=== PATIENT | male | born 1955 | race Hispanic/Latino ===

== ENCOUNTER → 2019-01-30 | Outpatient (CLI) | payer OTHER ==
[2019-01-30 10:47] LABS: CREATININE 0.9 mg/dL (0.5-1.5); POTASSIUM 4.5 mmol/L (3.5-5.1)
== END | disposition home or self-care (01) ==
LOC: LAB 09:50
PROVIDERS: ATTEND Family Medicine
DX: C09.1 Malignant neoplasm of tonsillar pillar (anterior) (posterior) (principal); C71.9 Malignant neoplasm of brain, unspecified
CPT/HCPCS: 36415; 80048

== ENCOUNTER → 2019-01-31 | Outpatient (CLI) | payer OTHER ==
[~2019-01-31] MED LIST: GADODIAMIDE 10 MMOL/20 ML VIAL IV ONE
== END | disposition home or self-care (01) ==
LOC: RAH 09:54
PROVIDERS: ATTEND Family Medicine
DX: G31.89 Other specified degenerative diseases of nervous system (principal); G93.89 Other specified disorders of brain; Z85.818 Personal history of malignant neoplasm of other sites of lip, oral cavity, and pharynx
CPT/HCPCS: 70553; A9579

== ENCOUNTER 2022-08-09 13:46 | Emergency (ER) | payer OTHER ==
[~2022-08-09] VITALS: Ht 165.1 cm; Wt 65.8 kg
[2022-08-09 15:19] LABS: BASOPHILS % (AUTO) 0.3 % (0.0-5.0); EOSINOPHILS % (AUTO) 0.1 % (0.0-8.0); HEMATOCRIT 40.6 % (42-54); LYMPHOCYTES % (AUTO) 4.8 % (21.0-51.0); MEAN CORPUSCULAR HEMOGLOBIN 32.8 pg (27.0-33.0); MEAN CORPUSCULAR VOLUME 96.4 fL (79-99); MONOCYTES % (AUTO) 5.9 % (3.0-13.0); NEUTROPHILS % (AUTO) 88.6 % (40.0-77.0); PLATELET COUNT (AUTO) 149 K/uL (130-400); RED BLOOD CELL COUNT(AUTO) 4.21 MIL/uL (4.50-6.20); RED CELL DISTRIBUTION WIDTH 11.9 % (11.0-15.5); WHITE BLOOD COUNT (AUTO) 7.2 K/uL (4.8-10.8)
[2022-08-09 15:28] LABS: CREATININE 1.1 mg/dL (0.5-1.5); POTASSIUM 3.5 mmol/L (3.5-5.1)
[2022-08-09 15:35] LABS: ALBUMIN 4.1 g/dL (3.5-5.0); TOTAL PROTEIN, SERUM 7.8 g/dL (6.0-8.3)
[2022-08-09 15:54] LABS: APPEARANCE,URINE CLEAR (CLEAR); BILIRUBIN,URINE NEGATIVE (NEGATIVE); COLOR,URINE COLORLESS (YELLOW); GLUCOSE, URINE (UA) 70 mg/dL (NEGATIVE); KETONES,URINE 10 mg/dL (NEGATIVE); LEUKOCYTE ESTERASE ,URINE NEGATIVE Leu/uL (NEGATIVE); NITRATE,URINE NEGATIVE (NEGATIVE); OCCULT BLOOD,URINE NEGATIVE (NEGATIVE); PROTEIN,URINE NEGATIVE (NEGATIVE); UROBILINOGEN,URINE 0.2 mg/dL (0.2-1.0)
[2022-08-09 15:56] LABS: RBC,URINE 0-1 /HPF (0-1)
[2022-08-09] MEDS ORDERED: 0.9% NACL 500ML IV.SOLN 500 ML IV ONE (16:30)
[2022-08-09] MEDS ORDERED: FAMOTIDINE 20MG VIAL IV ONE (16:30)
[2022-08-09] MEDS ORDERED: ONDANSETRON 4MG INJ IVP ONE (16:30)
[2022-08-09 18:49] VITALS: BP 143/69
[2022-08-09] MEDS ORDERED: ONDA4TAB10 PO (19:17)
== END 2022-08-09 19:34 | disposition home or self-care (01) ==
LOC: EDH 13:46
DX: E86.0 Dehydration (principal); R11.10 Vomiting, unspecified; A05.9 Bacterial foodborne intoxication, unspecified; Z20.822 Contact with and (suspected) exposure to COVID-19; E78.00 Pure hypercholesterolemia, unspecified; I10 Essential (primary) hypertension
CPT/HCPCS: 99284; 96374; 87635; 96375; 83735; 84484; 80053; 85025; 87804 ×2; 81001; 36415; 93005; C9803; J7040; J3490; J2405; 96361

== ENCOUNTER 2022-08-25 22:06 | Observation (INO) | payer OTHER ==
[~2022-08-25] VITALS: Ht 177.8 cm; Wt 77.1 kg
[~2022-08-25 22:06] MED LIST changes: -GADODIAMIDE 10 MMOL/20 ML VIAL IV ONE; +ONDA4TAB10 PO
[2022-08-25] MEDS ORDERED: 0.9%NACL 1000ML 1,000 ML IV ONE (22:30)
[2022-08-25] MEDS ORDERED: ONDANSETRON 4MG INJ IVP ONE (22:30)
[2022-08-25 22:33] LABS: BASOPHILS % (AUTO) 0.3 % (0.0-5.0); EOSINOPHILS % (AUTO) 0.7 % (0.0-8.0); HEMATOCRIT 35.3 % (42-54); LYMPHOCYTES % (AUTO) 12.5 % (21.0-51.0); MEAN CORPUSCULAR HEMOGLOBIN 32.3 pg (27.0-33.0); MEAN CORPUSCULAR HGB CONC 34.6 g/dL (32.0-36.0); MEAN CORPUSCULAR VOLUME 93.4 fL (79-99); MONOCYTES % (AUTO) 7.1 % (3.0-13.0); NEUTROPHILS % (AUTO) 79.1 % (40.0-77.0); PLATELET COUNT (AUTO) 214 K/uL (130-400); RED BLOOD CELL COUNT(AUTO) 3.78 MIL/uL (4.50-6.20); RED CELL DISTRIBUTION WIDTH 11.7 % (11.0-15.5); WHITE BLOOD COUNT (AUTO) 5.7 K/uL (4.8-10.8)
[2022-08-25 22:50] LABS: ALBUMIN 3.3 g/dL (3.5-5.0); POTASSIUM 4.1 mmol/L (3.5-5.1); TOTAL PROTEIN, SERUM 7.2 g/dL (6.0-8.3)
[2022-08-26] MEDS ORDERED: ONDANSETRON 4MG INJ IVP ONE (00:30)
[2022-08-26] MEDS ORDERED: IOHEXOL-350 50ML VIAL IV ONE (00:59)
[2022-08-26] MEDS ORDERED: LABETALOL 20MG SYG IV ONE (04:16)
[2022-08-26] MEDS ORDERED: LACTULOSE 20 GM/30 ML UDCUP PO PRN (04:30)
[2022-08-26] MEDS ORDERED: LABETALOL 20MG VIAL IV ONE (04:30)
[2022-08-26] MEDS ORDERED: ONDANSETRON 4MG INJ IV PRN (04:30)
[2022-08-26] MEDS ORDERED: 0.9%NACL 1000ML 1,000 ML IV SCH (04:30)
[2022-08-26] MEDS ORDERED: LABETALOL 20MG VIAL IV PRN (04:30)
[2022-08-26] MEDS ORDERED: ACETAMINOPHEN 325 MG TAB PO PRN ×2 (04:30)
[2022-08-26 05:45] VITALS: BP 166/97
[2022-08-26] MEDS ORDERED: METO100T14 PO (06:36)
[2022-08-26] MEDS ORDERED: DOCU100C33 PO (06:36)
[2022-08-26] MEDS ORDERED: LAMO200T10 PO ×2 (06:36→13:38)
[2022-08-26] MEDS ORDERED: LEVE10006 PO ×2 (06:36→13:38)
[2022-08-26] MEDS ORDERED: FINA5TAB41 PO (06:36)
[2022-08-26] MEDS ORDERED: TAMS-1 PO (06:36)
[2022-08-26] MEDS ORDERED: GABA-529 PO (06:36)
[2022-08-26] MEDS ORDERED: CYAN-52 PO (06:38)
[2022-08-26 07:54] VITALS: BP 147/75
[2022-08-26] MEDS ORDERED: FAMOTIDINE 20MG TAB PO SCH (09:00)
[2022-08-26] MEDS ORDERED: LAMOTRIGINE 100 MG TABLET PO SCH (09:00)
[2022-08-26] MEDS ORDERED: FINASTERIDE 5 MG TABLET PO SCH (09:00)
[2022-08-26] MEDS ORDERED: DOCUSATE SODIUM 100 MG CAP PO SCH (09:00)
[2022-08-26] MEDS ORDERED: LEVETIRACETAM 500 MG TABLET PO SCH (09:00)
[2022-08-26] MEDS ORDERED: TAMSULOSIN HCL 0.4 MG CAP.ER.24H PO SCH (09:00)
[2022-08-26] MEDS ORDERED: METOPROLOL TARTRATE 50 MG TAB PO SCH (09:00)
[2022-08-26 11:53] VITALS: BP 113/58
[2022-08-26] MEDS ORDERED: ONDA-104 PO (13:38)
[2022-08-26 16:41] VITALS: BP 148/88
== END 2022-08-26 17:15 | disposition home or self-care (01) ==
LOC: EDH 22:06 → EDHIP 08-26 04:18 → INTOOBSV 08-26 04:18 → 4AH 08-26 06:13
PROVIDERS: ADMIT Hospitalist; ATTEND Hospitalist
DX: R11.2 Nausea with vomiting, unspecified (principal); K57.90 Diverticulosis of intestine, part unspecified, without perforation or abscess without bleeding; G93.89 Other specified disorders of brain; I10 Essential (primary) hypertension; E87.1 Hypo-osmolality and hyponatremia; N40.0 Benign prostatic hyperplasia without lower urinary tract symptoms; Z86.73 Personal history of transient ischemic attack (TIA), and cerebral infarction without residual deficits
CPT/HCPCS: 96374; 96361; 99285; 84484; 80053; 85025; 36415; 93005; 96376; 96375; 82948 ×3; 70450; 74177; 97161; 97039; 97116; 80177; J7030; J2405 ×2; G0378 ×12; Q9967

== ENCOUNTER 2024-09-11 15:41 | Emergency (ER) | payer OTHER ==
[~2024-09-11] VITALS: Ht 177.8 cm; Wt 74.8 kg
[~2024-09-11 15:41] MED LIST changes: +CYAN-52 PO; +DOCU100C33 PO; +FINA5TAB41 PO; +GABA-529 PO; +LAMO200T10 PO; +LEVE10006 PO; +METO100T14 PO; +ONDA-104 PO; +ONDA-243 PO; -ONDA4TAB10 PO; +TAMS-1 PO
--- NOTE | 2024-09-11 17:06 | ERN ---
ED Note History of Present Illness Stated Complaint: LEFT HAND BLOOD CLOT Chief Complaint: Hand Problem/Injury Time Seen by MD: 17:02 Dictation: Patient is a 69-year-old here with his with complaints of left hand swelling, non trauma with no pain for one month. [facility]. Denies history of fever chills gout. No trauma distal neurovascular CMS intact to hand Allergies: Coded Allergies: No Known Allergies (Unverified Allergy, Unknown, 08/09/22) Home Meds Active Scripts Methylprednisolone (Medrol) 4 Mg Tab.ds.pk, 1 TAB PO AD for 6 Days, #21 TAB 0 Refills 6 on day 1 then reduce by one tablet daily until gone Prov:LAWRENCE ESQUIVEL POSITIVE PRINTER OPERATOR 09/11/24 Ibuprofen (Ibuprofen 800 mg Tab) 800 Mg Tab, 800 MG PO Q8H PRN for fever or pain, #30 TAB 0 Refills Prov:LAWRENCE ESQUIVEL POSITIVE PRINTER OPERATOR 09/11/24 Ondansetron HCl (Ondansetron HCl) 4 Mg Tablet, 4 MG PO TIDP PRN for NAUSEA for 5 Days, #15 TAB 0 Refills Prov:LEIDY DAVIES CATALYTIC CASE OPERATOR 08/26/22 Levetiracetam (Levetiracetam) 1,000 Mg Tablet, 1000 MG PO BID for 7 Days, #14 TAB 0 Refills Prov:LEIDY DAVIES CATALYTIC CASE OPERATOR 08/26/22 Lamotrigine (Lamotrigine) 200 Mg Tablet, 200 MG PO BID for 7 Days, #14 TAB 0 Refills Prov:LEIDY DAVIES CATALYTIC CASE OPERATOR 08/26/22 Ondansetron (Ondansetron Odt) 4 Mg Tab.rapdis, 4 MG PO TID PRN for NAUSEA, #15 TAB 0 Refills Prov:ESTRELLITA OLSEN MD 08/09/22 Reported Medications Cyanocobalamin (Vitamin B-12) (Vitamin B-12) 1,000 Mcg Tablet, 1000 MCG PO DAILY for DIETARY SUPPLEMENT, TAB 08/26/22 Metoprolol Tartrate (Metoprolol Tartrate) 100 Mg Tablet, 100 MG PO BID, TAB 08/26/22 Gabapentin (Gabapentin) 100 Mg Capsule, 100 MG PO BID for NEUROPATHIC, CAP 08/26/22 Docusate Sodium (Docusate Sodium) 100 Mg Capsule, 100 MG PO BID for CONSTIPATION, CAP 08/26/22 Tamsulosin HCl (Flomax) 0.4 Mg Cap.er.24h, 0.4 MG PO DAILY for PROSTATE, CAPSULE. 08/26/22 Finasteride (Finasteride) 5 Mg Tablet, 5 MG PO DAILY for PROSTATE, TAB 08/26/22 Past Medical History Past Medical History: No Pertinent History, CVA, High Cholesterol, Hypertension, Prostatitis Surgical History: None, Unknown Family History: Negative Social History: Negative RN Note Reviewed/Agreed w/PFSH: Yes Review of System Dictation CONSTITUTIONAL: NEGATIVE EXCEPT FOR HPI HEAD/FACE: NEGATIVE EXCEPT FOR HPI EENT: NEGATIVE EXCEPT FOR HPI RESPIRATORY: NEGATIVE EXCEPT FOR HPI GASTROINTESTINAL/ABDOMINAL: NEGATIVE EXCEPT FOR HPI GENITOURINARY: NEGATIVE EXCEPT FOR HPI MUSCULOSKELETAL: NEGATIVE EXCEPT FOR HPI PAINLESS LEFT HAND SWELLING ONE MONTH INTEGUMENTARY: NEGATIVE EXCEPT FOR HPI NEUROLOGICAL/PSYCH: NEGATIVE EXCEPT FOR HPI HEMATOLOGIC/LYMPHATIC: NEGATIVE EXCEPT FOR HPI ALL SYSTEMS NEGATIVE, EXCEPT NOTED ABOVE. 13 POINT REVIEW OF SYSTEMS ASSESSED AND ALL NEGATIVE EXCEPT FOR ABOVE. Initial Vital Sign VS Vital Signs Date Time Temp Pulse Resp B/P (MAP) Pulse Ox O2 Delivery O2 Flow Rate FiO2 09/11/24 17:03 98.2 82 20 133/75 98 Room Air 0 09/11/24 20:32 21 Physical Exam Dictation VITAL SIGNS REVIEWED 0/10 PAIN GENERAL APPEARANCE: ALERT, ORIENTED X 3, NO ACUTE DISTRESS, WELL DEVELOPED, NOURISHED. HEAD AND FACE: NON-TRAUMATIC. EYES: PERRL, PINK CONJUNCTIVAS, EYELID NO TRAUMA, ANTERIOR CHAMBER WITH ARCUS SENILIS. EARS: PINNAS INTACT AND NO SIGNS OF TRAUMA OR ERYTHEMA EAR CANALS CLEAR AND NO DISCHARGE TM NO ERYTHEMA NOSE: NO DISCHARGE, NO BLEEDING. OROPHARYNX: MOUTH NORMAL, TONGUE PINK, PHARYNX CLEAR,NO ERYTHEMA, TONSILS NO EXUDATES, NO ABSCESSES NOTED, MUCOUS MEMBRANE MOIST NECK: SUPPLE, NON-TENDER, NO THYROMEGALY, NO MASSES, NO JVD, NO BRUITS BREAST:DEFERRED CHEST:NO TENDERNESS, NO CREPITUS, NO PARADOXICAL MOVEMENT, NO RETRACTIONS LUNGS:CLEAR, WELL-VENTILATED, SYMMETRIC, NO RALES, NO WHEEZING, NO RHONCHI, NO STRIDOR, GOOD BREATH SOUNDS BILATERALLY HEART: REGULAR RATE, REGULAR RHYTHM, NO MURMUR, NO GALLOPS VASCULAR: NO PERIPHERAL EDEMA, ABDOMEN: SOFT, POSITIVE BOWEL SOUNDS, NONDISTENDED, NO GUARDING, NONTENDER, NO REBOUND, NO MASSES NO HEPATOMEGALY, NO SPLENOMEGALY, NO HICKEY'S SIGN, NO HERNIAS. RECTAL: DEFERRED GENITAL: DEFERRED NEUROLOGICAL: NORMAL SPEECH, MOTOR FUNCTION INTACT, SENSORY FUNCTION INTACT MUSCULOSKELETAL: NECK NONTENDER, FULL RANGE OF MOTION, BACK NONTENDER, FULL RANGE OF MOTION, EXTREMITIES: LEFT HAND NONTENDER, FULL RANGE OF MOTION NOTED. NEUROVASCULAR CMS INTACT WITH SWELLING TO THE HAND NOTED. SKIN: COLOR PINK, DRY, NO TURGOR, NO RASH, NO LACERATIONS, NO ABRASIONS, NO CONTUSIONS. LYMPHATIC: DEFERRED Results (Laboratory/Radiology) Laboratory/Radiology Laboratory Tests Test 09/11/24 18:56 Uric Acid 5.2 mg/dL (2.6-7.2) ULTRASOUND VENOUS DOPPLER LEFT UPPER EXTREMITY INDICATION: Swelling. TECHNIQUE: Routine grayscale and color and spectral Doppler ultrasound of the left upper extremity veins performed in real-time, and images subsequently made available for review. COMPARISON: None FINDINGS: Normal compression, vascular antegrade flow, respiratory variation and spectral waveforms identified within the left internal jugular vein, subclavian vein, axillary vein, brachial vein, cephalic vein, and basilic vein. No evidence for an intraluminal thrombus. No soft tissue abnormalities demonstrated. IMPRESSION: No evidence for left upper extremity venous thrombosis. LEFT HAND RADIOGRAPHS - 3 VIEWS INDICATION: Left and swelling for one month without trauma COMPARISON: None FINDINGS: AP, lateral, and oblique views. No acute fracture of subluxation identified. Mild proximal and distal interphalangeal joint space narrowing. No evidence for any subarticular erosions. Scaphoid bone is intact. Carpal alignment and ulnar variance is within normal limits. Arterial wall calcific plaque noted. IMPRESSION: Degenerative changes and arteriosclerotic disease as described, without evidence for inflammatory changes or osteomyelitis. Labs Reviewed?: Yes ED Course ED Course Orders Procedure Category Date Status Time Us Venous Doppler US 09/11/24 Resulted Unilateral 17:04 Uric Acid LAB 09/11/24 Complete 17:04 Hand 3+Vws Lt RAD 09/11/24 Resulted 17:04 Ketorolac PHA 09/11/24 Complete Tromethamine 30mg/Ml 20:00 Current Medications Medications (Trade) Dose Ordered Sig/Brianna Route PRN Reason Start Time Stop Time Status Last Admin Dose Admin Ketorolac Tromethamine (toRADol) 30 mg ONCE ONCE IM 09/11/24 20:00 09/11/24 20:01 DC 09/11/24 20:13 Vital Signs Date Time Temp Pulse Resp B/P (MAP) Pulse Ox O2 Delivery O2 Flow Rate FiO2 09/11/24 20:32 98.2 80 20 131/77 98 Room Air* 0 21 09/11/24 17:03 98.2 82 20 133/75 98 Room Air 0 1920/WORKUP FOR LEFT HAND SWELLING NEGATIVE. NO GOUTY ARTHRITIS, NO FRACTURES HOWEVER DEGENERATIVE CHANGES SEEN IN HAND. DOPPLER ULTRASOUND NEGATIVE FOR DVT Medical Decision Making [facility] DISCHARGE MAKING BASED ON DOPPLER ULTRASOUND LEFT UPPER EXTREMITY RULE OUT DVT URIC ACID TO RULE OUT GOUT X-RAY TO RULE OUT FRACTURES OR INFLAMMATORY PROCESS PATIENT HAS A ARTHRITIC CHANGES IN THE HAND WHICH MAY BE CONTRIBUTING TO THE SWELLING WE WILL BE DISCHARGED HOME AFTER GIVEN TORADOL AND PUT ON ANTI-INFLAMMATORY DRUGS FOR SEVERAL DAYS. FOLLOW BACK UP WITH HIS DOCTOR AT [facility] NEUROVASCULAR CMS INTACT TO LEFT HAND DX & DISP Disposition: Discharge Departure Impression: Primary Impression: Arthritis of left hand Additional Impression: Swelling of left hand Condition: Stable Scripts Methylprednisolone (Medrol) 4 Mg Tab.ds.pk 1 TAB PO AD for 6 Days, #21 TAB 0 Refills 6 on day 1 then reduce by one tablet daily until gone Prov: LAWRENCE ESQUIVEL NP 09/11/24 Ibuprofen (Ibuprofen 800 mg Tab) 800 Mg Tab 800 MG PO Q8H PRN for fever or pain, #30 TAB 0 Refills Prov: LAWRENCE ESQUIVEL POSITIVE PRINTER OPERATOR 09/11/24 Additional Instructions: FOLLOW-UP WITH PRIMARY CARE PROVIDER IN 1 TO 2 DAYS. TAKE MEDICATIONS DIRECTED HERE IN THE EMERGENCY ROOM. OKAY TO CONTINUE HOME MEDICATIONS UNLESS OTHERWISE DISCUSSED DURING YOUR VISIT IN THE EMERGENCY ROOM TODAY. RETURN TO YOUR NEAREST EMERGENCY ROOM IF SYMPTOMS WORSEN OR IF THERE IS NO IMPROVEMENT. CALL 911 IF YOU NEED IMMEDIATE ASSISTANCE. TAKE TYLENOL OR MOTRIN OVER-THE- COUNTER NEEDED AND IF NO CONTRAINDICATIONS ARE PRESENT. INCREASE ORAL HYDRATION. A WOUND CULTURE OR URINE CULTURE WAS ORDERED HERE IN THE EMERGENCY ROOM DEPARTMENT PLEASE FOLLOW-UP WITH PRIMARY CARE PROVIDER AND ADVISE THEM TO GET REPEAT PORTS FROM OUR FACILITY. IF YOU HAD ANY CECILIA WRAP/SPLINTS THAT WERE APPLIED HERE, PLEASE DO NOT REMOVE THEM UNTIL YOU SEE YOUR PRIMARY CARE OR SPECIALTY. TAKE MEDROL DOSEPAK DIRECTED UNTIL GONE. TAKE IBUPROFEN EVERY8 HOURS WITH FOOD FOR THE NEXT TWO DAYS. KEEP LEFT HAND ELEVATED WITH WARM COMPRESSES THREE TO 4 TIMES A DAY. SEE YOUR DOCTOR AT THE [facility] FOR FOLLOW UP AND MANAGEMENT Referrals: MELANIE CELIS MD (PCP) Time of Disposition: 19:22 I have reviewed the case, and I agree with, Diagnosis and Plan I performed the substantive portion of the visit. I have reviewed and personally made and approve the management plan that is documented in the notes by myself or the [facility]. I acknowledge full responsibility for the patient's management plan. LAWRENCE ESQUIVEL NP Sep 11, 2024 17:06 ALEIDA MARQUEZ MD Sep 12, 2024 11:50
--- NOTE | 2024-09-11 17:41 | HMCIMG ---
ULTRASOUND VENOUS DOPPLER LEFT UPPER EXTREMITY INDICATION: Swelling. TECHNIQUE: Routine grayscale and color and spectral Doppler ultrasound of the left upper extremity veins performed in real-time, and images subsequently made available for review. COMPARISON: None FINDINGS: Normal compression, vascular antegrade flow, respiratory variation and spectral waveforms identified within the left internal jugular vein, subclavian vein, axillary vein, brachial vein, cephalic vein, and basilic vein. No evidence for an intraluminal thrombus. No soft tissue abnormalities demonstrated. IMPRESSION: No evidence for left upper extremity venous thrombosis.
--- NOTE | 2024-09-11 18:22 | HMCIMG ---
LEFT HAND RADIOGRAPHS - 3 VIEWS INDICATION: Left and swelling for one month without trauma COMPARISON: None FINDINGS: AP, lateral, and oblique views. No acute fracture of subluxation identified. Mild proximal and distal interphalangeal joint space narrowing. No evidence for any subarticular erosions. Scaphoid bone is intact. Carpal alignment and ulnar variance is within normal limits. Arterial wall calcific plaque noted. IMPRESSION: Degenerative changes and arteriosclerotic disease as described, without evidence for inflammatory changes or osteomyelitis.
[2024-09-11] MEDS ORDERED: METH4TAB3 PO (19:22)
[2024-09-11] MEDS ORDERED: IBUP-2077 PO (19:22)
[2024-09-11] MEDS: ketOROlac 30MG VIAL (30MG/ML) IM ONE (20:13)
[2024-09-11 20:32] VITALS: BP 131/77; PULSE 80; RESP 20; TEMP 98.2; O2SAT 98
== END 2024-09-11 20:33 | disposition home or self-care (01) ==
LOC: EDH 15:41
DX: M19.042 Primary osteoarthritis, left hand (principal); M79.89 Other specified soft tissue disorders; M79.622 Pain in left upper arm; Z79.899 Other long term (current) drug therapy
CPT/HCPCS: 99285; 93971; 84550; 36415; 73130; 96372; J1885